=== PATIENT | female | born 1930 | race Two or more races ===

== ENCOUNTER 2016-09-21 10:00 | Day surgery (SDC) | payer OTHER ==
[~2016-09-21] VITALS: Ht 157.5 cm; Wt 82.9 kg
[~2016-09-21 10:00] MED LIST: ADVAIR 250/501 DISK IH; COUMADIN3 MG PO; CYANOCOBAL1000 MCG/2 IM; IMDUR30 MG PO; LISINOPRIL5 MG PO; TOPROL XL25 MG PO; TYLENOL EXTRA500 MG PO; VESICARE5 MG PO
[2016-09-21 10:45] VITALS: BP 133/69
[2016-09-21 10:53] LABS: HEMATOCRIT 41.1 % (36.0-46.0); MCH 32.3 PG (29.0-34.0); MCHC 33.3 G/DL (30.0-36.0); MCV 96.9 FL (83-99); MEAN PLAT.VOLUME 10.4 uM^3 (9.5-12.4); PLATELET COUNT 161 K/uL (156-360); RBC DIS.WIDTH-CV 12.8 % (11.8-14.6); RBC DIS.WIDTH-SD 45.6 % (39-53); RED BLOOD COUNT 4.24 M/uL (3.80-5.20); WHITE BLOOD COUNT 6.2 K/uL (4.1-10.2)
[2016-09-21 11:12] LABS: ANION GAP 8 MEQ/L (2-14); CHLORIDE 103 MEQ/L (99-109); SAMPLE HEMOLYSIS CHECK 0; SAMPLE ICTERIC CHECK 0; SAMPLE LIPEMIA CHECK 0; SODIUM 138 MEQ/L (136-147)
[2016-09-21 11:13] LABS: INTER. NORMALIZED RATIO 1.1; PROTHROMBIN TIME 11.4 (9.2-11.2); PTT 26.6 (25-32)
[2016-09-21 11:17] LABS: GFR ESTIMATE (CALCULATED) > 59 mL/min/; GLUCOSE 105 mg/dL (70-99); UREA NITROGEN (BUN) 18 mg/dL (9-23)
[2016-09-21 11:54] LABS: METH RESISTANT S AUREUS PCR NEGATIVE (NEGATIVE)
[2016-09-21 11:55] LABS: PROBE CHECK PASS; SPECIMEN PROCESSING CONTROL PASS
[2016-09-21 17:50] VITALS: BP 174/88
[2016-09-21 19:38] VITALS: BP 171/79
[2016-09-21 23:47] VITALS: BP 140/78
[2016-09-22 03:36] VITALS: BP 125/68
[2016-09-22 07:35] VITALS: BP 121/65
[2016-09-22 11:37] VITALS: BP 100/56
[2016-09-22 15:39] VITALS: BP 111/57
[2016-09-22] MEDS ORDERED: HYDROCODON-ACE1 EAC7 PO (15:42)
[2016-09-22] MEDS ORDERED: BACLOFEN10 MG PO (16:04)
== END 2016-09-22 17:00 | disposition home or self-care (01) ==
LOC: SDC 10:00 → 2SOUTH 16:11 → SDC 16:16 → 3EAST 17:40
PROVIDERS: Neurological Surgery
PROC: 00NW0ZZ Release Cervical Spinal Cord, Open Approach (ICD-10-PCS; principal; 2016-09-21)
DX: M47.12 Other spondylosis with myelopathy, cervical region (principal); R26.2 Difficulty in walking, not elsewhere classified; I25.10 Atherosclerotic heart disease of native coronary artery without angina pectoris; I48.91 Unspecified atrial fibrillation; Z79.01 Long term (current) use of anticoagulants; I10 Essential (primary) hypertension; Z96.651 Presence of right artificial knee joint; Z82.49 Family history of ischemic heart disease and other diseases of the circulatory system; Z88.2 Allergy status to sulfonamides; Z88.1 Allergy status to other antibiotic agents; Z88.0 Allergy status to penicillin
CPT/HCPCS: 72020; 76000; 80048; 85027; 85610; 85730; 87641; 93005; 94640; 94640 76; G0378; J0330; J1100; J1170; J2405; J2710; J3010; J3370; J3480; S0020